=== PATIENT | female | born 1950 | race Caucasian/White ===

== ENCOUNTER 2018-02-25 14:20 | Emergency (ER) | payer OTHER, MEDICARE ==
[2018-02-25] MEDS ORDERED: LORAZEPAM 1 MG TABLET ONE (15:32)
[2018-02-25] MEDS ORDERED: NA CHLORIDE 0.9% 500 ML ONE (15:47)
[2018-02-25] MEDS ORDERED: CEFTRIAXONE/SWI 1gm 1 GM/10 ML SYR ONE (15:47)
--- NOTE | 2018-02-25 15:54 | RAD REPORT ---
EXAM DESCRIPTION: CT - Head Brain Wo Cont - 02/25/2018 3:44 pm CLINICAL HISTORY: Headache, TIA. COMPARISON: 11/06/2016 TECHNIQUE: All CT scans are performed using dose optimization technique as appropriate and may inclu de automated exposure control or mA/KV adjustment according to patient size. FINDINGS: No intracranial hemorrhage, hydrocephalus or extra-axial fluid collection.Small area of gl iosis in the left basal ganglia is likely related to old lacunar infarct.No areas of brain edema or e vidence of midline shift. The paranasal sinuses and mastoids are clear. The calvarium is intact. IMPRESSION: No acute intracranial abnormality.
[2018-02-25 16:01] LABS: Absolute Lymphocytes (CBC) 1.9 K/uL (0.7-4.9); Absolute Monocytes 0.5 K/uL (0.1-1.3); Absolute Neutrophil 3.4 K/uL (1.8-8.0); Basophils % 0.4 % (0-1.3); Eosinophils % 2.4 % (0-4.4); Hematocrit 37.7 % (36.0-45.0); Lymphocytes % 32.7 % (15.3-44.8); MCH 31.3 pg (27.0-35.0); MCV 89.8 fL (80-100); MPV 7.3 fL (7.6-11.3); Monocytes % 7.7 % (3.3-12.3); RBC Red Blood Cell Count 4.19 M/uL (3.86-4.86)
[2018-02-25 16:04] LABS: Protime INR 0.9
[2018-02-25 16:05] LABS: Bicarbonate 32 mEq/L (21-31); Glucose Level 111 mg/dL (65-120); Potassium 3.2 mEq/L (3.6-5.0); Sodium Level 127 mEq/L (135-145)
[2018-02-25 16:12] LABS: ALT/SGPT 13 IU/L (10-60); AST/SGOT 20 IU/L (10-42); Alkaline Phosphatase 67 IU/L (42-121); BUN Blood Urea Nitrogen 15 mg/dL (6-20); Bilirubin Direct 0.1 mg/dL (0-0.2); Bilirubin Total 0.5 mg/dL (0.3-1.2); Creatine Phosphokinase 56 IU/L (22-269)
[2018-02-25 16:15] LABS: CKMB Creatine Kinase MB 3.9 ng/ml (0.3-4.0)
[2018-02-25 16:18] LABS: Magnesium 1.2 mg/dL (1.8-2.5)
[2018-02-25] MEDS ORDERED: Magnesium Sulfate 2gm IVPB 2 G/50 ML BAG IV ONE (16:40)
--- NOTE | 2018-02-25 17:17 | RAD REPORT ---
EXAM DESCRIPTION: RAD - Chest Single View - 02/25/2018 4:48 pm CLINICAL HISTORY: Weakness, shortness of breath COMPARISON: November 2016 TECHNIQUE: AP portable chest image was obtained 1553 hours . FINDINGS: No peripheral mass, consolidation or significant failure finding. Lung markings are mildly prominent but not clearly different. Trachea is midline. Heart and vasculature are normal. No measur able pleural effusion and no pneumothorax. No gross bony abnormality seen. No acute aortic findings s uspected. IMPRESSION: No acute cardiopulmonary process. No suspicious interval change.
--- NOTE | 2018-02-25 17:31 | ER ---
Nurse's Notes [facility] Name: Evie Galan Age: 67 yrs Sex: Female : 1950 Arrival Date: 02/25/2018 Time: 14:25 Bed 20 Private MD: Isaias Goodman Diagnosis: Hypokalemia;Hypomagnesemia;Urinary tract infection, site not specified Presentation: 02/25 14:37 Presenting complaint: Patient states: " [place] and I stood up to ph go to the bathroom and I felt weak all over. I didn't go the hospital, I just went to bed and I felt much better when I woke up. On Wednesday my home health nurse came and she said I may have had a TIA and I should come get checked out." Pt reports general weakness and fatigue, denies headache or dizziness, A\\T\\O x 4, hx of CVA 1 year ago, denies recent illness, reports 1 episode of vomiting when weakness occurred on Sat. Transition of care: patient was not received from another setting of care. No acute neurological deficit is noted. Onset of symptoms was February 25, 2018. Risk Assessment: Do you want to hurt yourself or someone else? Patient reports no desire to harm self or others. Initial Sepsis Screen: Does the patient meet any 2 criteria? No. Patient's initial sepsis screen is negative. Does the patient have a suspected source of infection? No. Patient's initial sepsis screen is negative. Care prior to arrival: None. 14:37 Method Of Arrival: Ambulatory 14:37 Acuity: AFTAB 3 ph Stroke Activation: Symptom onset > 6 hours Physician: Stroke Attending; Name: ; Notified At: ; Arrived At: Physician: Chief Stroke Resident; Name: ; Notified At: ; Arrived At: Physician: Stroke Resident; Name: ; Notified At: ; Arrived At: Physician: ED Attending; Name: ; Notified At: ; Arrived At: Physician: ED Resident; Name: ; Notified At: ; Arrived At: Historical: - Allergies: 14:42 Adhesives; ph - Home Meds: 14:42 aspirin 325 mg Oral tab 1 tab once daily [Active]; amlodipine 10 mg tab 1 tab once ph daily [Active]; bupropion HCl 300 mg Oral Tb24 1 tab once daily [Active]; Crestor 20 mg Oral tab 1 tab once daily [Active]; fluvoxamine 100 mg Oral tab 1 tab TID [Active]; Lantus Sub-Q [Active]; lisinopril 20 mg Oral tab 1 tab once daily [Active]; metformin 1,000 mg Oral tab 1 tab 2 times per day [Active]; metoprolol succinate 50 mg Oral Tb24 1 tab once daily [Active]; oxcarbazepine 300 mg Oral tab 1 tab 3 TIMES A DAY [Active]; - PMHx: 14:42 Depression; Diabetes - IDDM; High Cholesterol; Hypertension; ph - Immunization history:: Adult Immunizations up to date. - Social history:: Smoking status: Patient/guardian denies using tobacco. - Ebola Screening: : No symptoms or risks identified at this time. Screenin:52 Abuse screen: Denies threats or abuse. Nutritional screening: No deficits noted. em Tuberculosis screening: No symptoms or risk factors identified. Fall Risk None identified. Assessment: 14:45 General: Appears in no apparent distress. comfortable, Behavior is calm, cooperative. em General: Reports fatigue for >3 days. Pain: Denies pain. Neuro: Level of Consciousness is awake, alert, obeys commands, Oriented to person, place, time, situation, Moves all extremities. Speech is normal, Facial symmetry appears normal, Pupils are PERRLA. Cardiovascular: Capillary refill < 3 seconds Patient's skin is warm and dry. Respiratory: Airway is patent Respiratory effort is even, unlabored, Respiratory pattern is regular, symmetrical, Breath sounds are clear bilaterally. GI: Abdomen is round non-distended. : No signs and/or symptoms were reported regarding the genitourinary system. EENT: No signs and/or symptoms were reported regarding the EENT system. Derm: Skin is intact, Skin is pink, warm \\T\\ dry. Musculoskeletal: Range of motion: intact in all extremities. 15:00 Reassessment: Patient appears in no apparent distress at this time. I agree with above iw assessment by Chandler Davey LVN. 15:50 Reassessment: Patient appears in no apparent distress at this time. Patient and/or em family updated on plan of care and expected duration. Pain level reassessed. Patient is alert, oriented x 3, equal unlabored respirations, skin warm/dry/pink. Patient states feeling better. 16:50 Reassessment: Patient appears in no apparent distress at this time. Patient and/or em family updated on plan of care and expected duration. Pain level reassessed. Patient is alert, oriented x 3, equal unlabored respirations, skin warm/dry/pink. 17:47 Reassessment: Patient appears in no apparent distress at this time. Patient and/or em family updated on plan of care and expected duration. Pain level reassessed. Patient is alert, oriented x 3, equal unlabored respirations, skin warm/dry/pink. awaiting completion of magnesium to discharge pt, family member at bedside. 18:40 Reassessment: Patient appears in no apparent distress at this time. Patient and/or em family updated on plan of care and expected duration. Pain level reassessed. Patient is alert, oriented x 3, equal unlabored respirations, skin warm/dry/pink. Patient states feeling better. Patient states symptoms have improved. Vital Signs: 14:40 BP 169 / 82; Pulse 53; Resp 18; Temp 98.5; Pulse Ox 96% on R/A; Weight 79.38 kg; Height ph 5 ft. 4 in. (162.56 cm); Pain 0/10; 15:13 BP 174 / 75 Supine; Pulse 61; em 15:13 BP 187 / 68 Sitting; Pulse 55; em 15:13 BP 181 / 74; Pulse 77; Resp 16; Pulse Ox 99% on R/A; Pain 0/10; em 16:17 BP 162 / 75; Pulse 54; Resp 15; Pulse Ox 97% on R/A; mh5 17:00 BP 168 / 56; Pulse 57; Resp 18; Pulse Ox 99% on R/A; Pain 0/10; em 18:00 BP 179 / 65; Pulse 59; Resp 18; Pulse Ox 98% on R/A; Pain 0/10; em 14:40 Body Mass Index 30.04 (79.38 kg, 162.56 cm) ph ED Course: 14:25 Patient arrived in ED. mr 14:25 Isaias Goodman DO is Private Physician. mr 14:40 Triage completed. ph 14:42 Arm band placed on. ph 14:50 Chandler Davey LVN is Primary Nurse. em 15:01 Preston Melvin PA is PHCP. cp 15:01 Preston Freitas MD is Attending Physician. cp 15:19 EKG done, by highway maintenance technician. reviewed by Preston XAVIER. sm3 15:30 No provider procedures requiring assistance completed. Initial lab(s) drawn, by me, em sent to lab. Inserted saline lock: 20 gauge in right forearm, using aseptic technique. Blood collected. 15:44 CT Head Brain wo Cont In Process Unspecified. EDMS 15:45 CT completed. Patient tolerated procedure well. Patient moved back from CT. mw3 15:45 Patient has correct armband on for positive identification. Placed in gown. Bed in low mh5 position. Call light in reach. Side rails up X 1. Adult w/ patient. Warm blanket given. monitor tech on. Pulse ox on. NIBP on. 15:45 Urine collected: clean catch specimen, cloudy. mh5 16:48 XRAY Chest (1 view) In Process Unspecified. EDMS 17:29 Isaias Goodman DO is Referral Physician. cp 18:51 IV discontinued, intact, bleeding controlled, No redness/swelling at site. Pressure em dressing applied. Administered Medications: 15:40 Drug: Ativan 1 mg Route: PO; em 16:45 Follow up: Response: No adverse reaction em 16:00 Drug: NS 0.9% 500 ml Route: IV; Rate: bolus; Site: right forearm; em 17:13 Follow up: IV Status: Completed infusion; IV Intake: 500ml em 16:13 CANCELLED (Physician Discretion): Rocephin - (cefTRIAXone) 1 grams IVPB once over 30 em mins; (mix in 50 mL NS) for UTI 16:13 CANCELLED (Physician Discretion): NS 0.9% 500 ml IV at bolus once em 16:14 Drug: Rocephin - (cefTRIAXone) 1 grams Route: IVPB; Infused Over: 30 mins; Site: right iw forearm; 17:13 Follow up: Response: No adverse reaction; IV Status: Completed infusion em 16:44 Drug: Magnesium Sulfate 2 grams Route: IVPB; Infused Over: 2 hrs; Site: right forearm; em 18:50 Follow up: IV Status: Completed infusion; IV Intake: 50ml em 17:30 Drug: NS 0.9% 500 ml Route: IV; Rate: bolus; Site: right forearm; em 18:50 Follow up: IV Status: Completed infusion; IV Intake: 500ml em 17:46 Drug: Potassium Chloride 40 mEq Route: PO; em 18:50 Follow up: Response: No adverse reaction em Point of Care Testing: Blood Glucose: 15:15 Blood Glucose: 106 mg/dL; em Ranges: Intake: 17:13 IV: 500ml; Total: 500ml. em 18:50 IV: 500ml; Total: 1000ml. em 18:50 IV: 50ml; Total: 1050ml. em Outcome: 17:30 Discharge ordered by MD. cp 19:01 Discharged to home ambulatory. em 19:01 Condition: good 19:01 Discharge instructions given to patient, Instructed on discharge instructions, follow up and referral plans. Demonstrated understanding of instructions, follow-up care, medications, Prescriptions given X 3. 19:02 Patient left the ED. em Signatures: Dispatcher [employer] Karin Carter mr Davey, Chandler, DIRECTOR PATIENT ACCOUNTING DIRECTOR PATIENT ACCOUNTING em Lindsay Amaya RN RN Eli Will RN RN ph Preston Melvin PA PA cp Martinez, Maria 5 Cayla Mccall 3 Edie Corado mw3 Corrections: (The following items were deleted from the chart) 14:40 14:37 Presenting complaint: Patient states: " [place] and I stood ph up to go to the bathroom and I felt weak all over. I didn't go the hospital, I just went to bed and I felt much better when I woke up. On Wednesday my home health nurse came and she said I may have had a TIA and I should come get checked out." Pt reports general weakness and fatigue, denies headache or dizziness, A\\T\\O x 4, hx of CVA 1 year ago ph
--- NOTE | 2018-02-25 17:32 | EDPHYS ---
Physician Documentation [facility] Name: Evie Galan Age: 67 yrs Sex: Female : 1950 Arrival Date: 02/25/2018 Time: 14:25 Bed 20 Private MD: Isaias Goodman ED Physician Preston Freitas HPI: 02/25 15:05 This 67 yrs old Female presents to ER via Ambulatory with complaints of cp Weakness. 15:05 The patient presents to the emergency department with weakness of the entire body, cp generalized weakness, that is mild. 15:05 Onset: The symptoms/episode began/occurred 4 day(s) ago. Associated signs and symptoms: cp Pertinent positives: weakness, fatigue, Pertinent negatives: altered mental status, chills, fever, headache, neck stiffness, paresthesias, syncope, near-syncope, focal weakness, change in vision. Severity of symptoms: in the emergency department the symptoms have improved mildly. Patient's baseline: Neuro: alert and fully oriented, Motor: right-sided weakness, Speech: normal, The patient has a previous history of CVA. Current symptoms: general weakness, fatigue. Patient reports she at a casino this past [place] and when she got up to go to restroom felt general weakness. Patient reports she went to her room for a nap and felt better after awakening. Symptoms have improved but continues to feel general weakness and fatigue. Historical: - Allergies: 14:42 Adhesives; ph - Home Meds: 14:42 aspirin 325 mg Oral tab 1 tab once daily [Active]; amlodipine 10 mg tab 1 tab once ph daily [Active]; bupropion HCl 300 mg Oral Tb24 1 tab once daily [Active]; Crestor 20 mg Oral tab 1 tab once daily [Active]; fluvoxamine 100 mg Oral tab 1 tab TID [Active]; Lantus Sub-Q [Active]; lisinopril 20 mg Oral tab 1 tab once daily [Active]; metformin 1,000 mg Oral tab 1 tab 2 times per day [Active]; metoprolol succinate 50 mg Oral Tb24 1 tab once daily [Active]; oxcarbazepine 300 mg Oral tab 1 tab 3 TIMES A DAY [Active]; - PMHx: 14:42 Depression; Diabetes - IDDM; High Cholesterol; Hypertension; ph - Immunization history:: Adult Immunizations up to date. - Social history:: Smoking status: Patient/guardian denies using tobacco. - Ebola Screening: : No symptoms or risks identified at this time. ROS: 15:10 Constitutional: Positive for fatigue, Negative for body aches, chills, fever, poor PO cp intake. 15:10 Eyes: Negative for injury, pain, redness, and discharge. cp 15:10 ENT: Negative for drainage from ear(s), ear pain, sore throat, difficulty swallowing, difficulty handling secretions. 15:10 Cardiovascular: Negative for chest pain, edema, palpitations. 15:10 Respiratory: Negative for cough, shortness of breath, wheezing. 15:10 Abdomen/GI: Negative for abdominal pain, diarrhea, constipation, anorexia, dysphagia, black/tarry stool, rectal bleeding, active vomiting. 15:10 Back: Negative for pain at rest, pain with movement. 15:10 : Negative for urinary symptoms, flank pain. 15:10 MS/extremity: Negative for injury or acute deformity, decreased range of motion, pain, paresthesias, tenderness. 15:10 Skin: Negative for cellulitis, rash. 15:10 Neuro: Positive for general weakness, Negative for altered mental status, dizziness, headache, syncope, near syncope, visual changes. 15:10 All other systems are negative. Exam: 15:17 ECG was reviewed by the Attending Physician. cp 15:18 Constitutional: The patient appears in no acute distress, alert, awake, cp non-diaphoretic, non-toxic, well developed, well nourished. 15:18 Head/Face: Normocephalic, atraumatic. Eyes: Pupils equal round and reactive to light, cp extra-ocular motions intact. Lids and lashes normal. Conjunctiva and sclera are non-icteric and not injected. Cornea within normal limits. Periorbital areas with no swelling, redness, or edema. ENT: Nares patent. No nasal discharge, no septal abnormalities noted. Tympanic membranes are normal and external auditory canals are clear. Oropharynx with no redness, swelling, or masses, exudates, or evidence of obstruction, uvula midline. Mucous membranes moist. Neck: Trachea midline, no thyromegaly or masses palpated, and no cervical lymphadenopathy. Supple, full range of motion without nuchal rigidity, or vertebral point tenderness. No Meningismus. Chest/axilla: Normal chest wall appearance and motion. Nontender with no deformity. No lesions are appreciated. 15:18 Cardiovascular: Rate: normal, Rhythm: regular, Pulses: Pulses are 2+ in right radial artery and left radial artery. Edema: is not appreciated, JVD: is not appreciated. 15:18 Respiratory: the patient does not display signs of respiratory distress, Respirations: normal, no use of accessory muscles, no retractions, no splinting, no tachypnea, labored breathing, is not present, Breath sounds: are clear throughout, no decreased breath sounds, no stridor, no wheezing. 15:18 Abdomen/GI: Inspection: abdomen appears normal, Bowel sounds: active, all quadrants, Palpation: abdomen is soft and non-tender, in all quadrants, rebound tenderness, is not appreciated, voluntary guarding, is not appreciated, involuntary guarding, is not appreciated. 15:18 Back: pain, is absent, ROM is normal. 15:18 Skin: cellulitis, is not appreciated, no rash present. 15:18 Neuro: Cerebellar function: Romberg testing is negative, normal finger to nose testing, Motor: moves all fours, general weakness w/o focal deficits, Sensation: no obvious gross deficits. Vital Signs: 14:40 BP 169 / 82; Pulse 53; Resp 18; Temp 98.5; Pulse Ox 96% on R/A; Weight 79.38 kg; Height ph 5 ft. 4 in. (162.56 cm); Pain 0/10; 15:13 BP 174 / 75 Supine; Pulse 61; em 15:13 BP 187 / 68 Sitting; Pulse 55; em 15:13 BP 181 / 74; Pulse 77; Resp 16; Pulse Ox 99% on R/A; Pain 0/10; em 16:17 BP 162 / 75; Pulse 54; Resp 15; Pulse Ox 97% on R/A; mh5 17:00 BP 168 / 56; Pulse 57; Resp 18; Pulse Ox 99% on R/A; Pain 0/10; em 18:00 BP 179 / 65; Pulse 59; Resp 18; Pulse Ox 98% on R/A; Pain 0/10; em 14:40 Body Mass Index 30.04 (79.38 kg, 162.56 cm) ph MDM: 15:02 Patient medically screened. [facility] 17:26 Data reviewed: vital signs, nurses notes, lab test result(s), EKG, radiologic studies, cp CT scan, plain films. 17:27 ED course: VSS. Discussed results of labs, EKG and radiology studies. Patient reports cp she is feeling better and would like to be discharged to home for continued monitoring verses continued observation in ED. 17:30 Counseling: I had a detailed discussion with the patient and/or guardian regarding: the cp historical points, exam findings, and any diagnostic results supporting the discharge/admit diagnosis, lab results, radiology results, the need for outpatient follow up, a family practitioner, to return to the emergency department if symptoms worsen or persist or if there are any questions or concerns that arise at home. 17:30 Response to treatment: the patient's symptoms have markedly improved after treatment. cp 02/25 15:02 Order name: Basic Metabolic Panel; Complete Time: 16:59 cp 02/25 16:59 Interpretation: Normal except: NA 127; K 3.2; CL 88; CO2 32. cp 02/25 15:02 Order name: BNP; Complete Time: 16:59 cp 02/25 18:30 Interpretation: Abnormal: BNP 335. cp 02/25 15:02 Order name: CBC with Diff; Complete Time: 16:11 cp 02/25 16:11 Interpretation: Normal except: MCV 89.8; MPV 7.3. cp 02/25 15:02 Order name: Ckmb; Complete Time: 16:59 cp 02/25 15:02 Order name: CPK; Complete Time: 16:59 cp 02/25 15:02 Order name: LFT's; Complete Time: 16:59 cp 02/25 15:02 Order name: Magnesium; Complete Time: 16:59 cp 02/25 17:00 Interpretation: Abnormal: MG 1.2. cp 02/25 15:02 Order name: PT-INR; Complete Time: 16:11 cp 02/25 15:02 Order name: Ptt, Activated; Complete Time: 16:11 cp 02/25 15:02 Order name: Troponin (emerg Dept Use Only); Complete Time: 16:59 cp 02/25 15:02 Order name: XRAY Chest (1 view); Complete Time: 17:18 cp 02/25 15:10 Order name: CT Head Brain wo Cont; Complete Time: 15:58 cp 02/25 15:58 Interpretation: Report reviewed. cp 02/25 16:39 Order name: Urine Dipstick--Ancillary (enter results); Complete Time: 18:29 ag 02/25 18:29 Interpretation: Normal except: UPH 8.5; UPROT 1+; U NIT POSITIVE; UESTR 1+. cp 02/25 15:01 Order name: Orthostatics; Complete Time: 15:43 cp 02/25 15:02 Order name: EKG; Complete Time: 15:03 cp 02/25 15:02 Order name: Cardiac monitoring; Complete Time: 15:43 cp 02/25 15:02 Order name: EKG - Nurse/Tech; Complete Time: 15:44 cp 02/25 15:02 Order name: IV Saline Lock; Complete Time: 15:44 cp 02/25 15:02 Order name: Labs collected and sent; Complete Time: 15:44 cp 02/25 15:02 Order name: O2 Per Protocol; Complete Time: 15:44 cp 02/25 15:02 Order name: O2 Sat Monitoring; Complete Time: 15:44 cp 02/25 15:02 Order name: Urine Dipstick-Ancillary (obtain specimen); Complete Time: 15:44 cp EC:17 Rate is 61 beats/min. Rhythm is regular. IA interval is prolonged at 222 msec. QRS cp interval is prolonged. QT interval is normal. No ST changes noted. Interpreted by me. Reviewed by me. Administered Medications: 15:40 Drug: Ativan 1 mg Route: PO; em 16:45 Follow up: Response: No adverse reaction em 16:00 Drug: NS 0.9% 500 ml Route: IV; Rate: bolus; Site: right forearm; em 17:13 Follow up: IV Status: Completed infusion; IV Intake: 500ml em 16:13 CANCELLED (Physician Discretion): Rocephin - (cefTRIAXone) 1 grams IVPB once over 30 em mins; (mix in 50 mL NS) for UTI 16:13 CANCELLED (Physician Discretion): NS 0.9% 500 ml IV at bolus once em 16:14 Drug: Rocephin - (cefTRIAXone) 1 grams Route: IVPB; Infused Over: 30 mins; Site: right iw forearm; 17:13 Follow up: Response: No adverse reaction; IV Status: Completed infusion em 16:44 Drug: Magnesium Sulfate 2 grams Route: IVPB; Infused Over: 2 hrs; Site: right forearm; em 18:50 Follow up: IV Status: Completed infusion; IV Intake: 50ml em 17:30 Drug: NS 0.9% 500 ml Route: IV; Rate: bolus; Site: right forearm; em 18:50 Follow up: IV Status: Completed infusion; IV Intake: 500ml em 17:46 Drug: Potassium Chloride 40 mEq Route: PO; em 18:50 Follow up: Response: No adverse reaction em Point of Care Testing: Blood Glucose: 15:15 Blood Glucose: 106 mg/dL; em Ranges: Critical Glucose Levels:Adult <50 mg/dl or >400 mg/dl <40 mg/dl or >180 mg/dl Disposition: 02/25/18 17:30 Discharged to Home. Impression: Hypokalemia, Hypomagnesemia, Urinary tract infection, site not specified. - Condition is Stable. - Discharge Instructions: Potassium Content of Foods, Hypomagnesemia, Urinary Tract Infection, Hypokalemia. - Prescriptions for magnesium - take 400 milligram by ORAL route once daily for 3 days; 3 tablet. Augmentin 875- 125 mg Oral Tablet - take 1 tablet by ORAL route every 12 hours for 10 days; 20 tablet. Potassium Chloride 10 mEq Oral Capsule, Sustained Release - take 1 tablet by ORAL route every 12 hours for 3 days; 6 tablet. - Medication Reconciliation Form, Thank You Letter, Antibiotic Education, Prescription Opioid Use form. - Follow up: Isaias Goodman DO; When: 2 - 3 days; Reason: Recheck today's complaints. - Problem is new. - Symptoms have improved. Addendum: 03/01/2018 09:03 Co-signature as Attending Physician, Preston Freitas MD I agree with the assessment and c hernandez plan of care. Signatures: Dispatcher [employer] Preston Mchugh MD MD cha Munoz, Edgar, HANDLE FINISHER HANDLE FINISHER em Lindsay Amaya, WALLY RN iw Eli Will RN RN ph Preston Melvin PA PA cp Corrections: (The following items were deleted from the chart) 02/25 16:13 16:12 Rocephin - (cefTRIAXone) 1 grams IVPB once over 30 mins; (mix in 50 mL NS) for em UTI ordered. cp 16:13 16:12 NS 0.9% 500 ml IV at bolus once ordered. cp em 19:02 17:30 02/25/2018 17:30 Discharged to Home. Impression: Hypokalemia; Hypomagnesemia; em Urinary tract infection, site not specified. Condition is Stable. Forms are Medication Reconciliation Form, Thank You Letter, Antibiotic Education, Prescription Opioid Use. Follow up: Isaias Goodman; When: 2 - 3 days; Reason: Recheck today's complaints. Problem is new. Symptoms have improved. cp
--- NOTE | 2018-02-25 17:37 | EKG ---
Test Date: 2018-02-25 Test Time: 15:12:27 Snow Removal/Plowing: BANDAR MEASUREMENT RESULTS: Intervals: Rate: 61 VT: 222 QRSD: 106 QT: 432 QTc: 434 [place]: P: 63 VT: 222 QRS: 37 T: 61 INTERPRETIVE STATEMENTS: Sinus rhythm with 1st degree AV block Otherwise normal ECG Compared to ECG 11/06/2016 22:07:14 No significant changes Electronically Signed On 02-25-18 17:36:40 CDT by Tobi Chiu
[2018-02-25] MEDS ORDERED: POTASSIUM CL SA 10 MEQ TAB PO ONE (17:42)
[2018-02-25 17:57] LABS: Urine Blood NEGATIVE (NEG); Urine Glucose NEGATIVE (NEG); Urine Protein 1+ (NEG); Urine Specific Gravity 1.015 (1.005-1.030); Urine pH 8.5 (5.0-7.0)
== END 2018-02-25 19:02 | disposition home or self-care (01) ==
LOC: ER 14:20
DX: N39.0 Urinary tract infection, site not specified (principal); E87.6 Hypokalemia; E83.42 Hypomagnesemia; I10 Essential (primary) hypertension; E11.9 Type 2 diabetes mellitus without complications; F32.9 Major depressive disorder, single episode, unspecified; Z79.4 Long term (current) use of insulin; Z79.82 Long term (current) use of aspirin; Z91.048 Other nonmedicinal substance allergy status
CPT/HCPCS: 36415; 70450; 71045; 80048; 80076; 81003; 82550; 82553; 82962; 83735; 83880; 84484; 85025; 85610; 85730; 93005; 96365; 96366; 99285; J0696; J3475; 96361; 96368

== ENCOUNTER 2019-01-27 14:26 | Inpatient (IN) | payer OTHER, MEDICARE ==
--- NOTE | 2019-01-27 15:11 | RAD REPORT ---
EXAM DESCRIPTION: CT - CTHCSPWOC - 01/27/2019 3:01 pm CLINICAL HISTORY: Trauma, head and neck injury, weakness COMPARISON: None. TECHNIQUE: Axial 5 mm thick images of the head were obtained. Axial 2 mm thick images of the cervic al spine were obtained with sagittal and coronal reconstruction images generated and reviewed. All CT scans are performed using dose optimization technique as appropriate and may include automated exposure control or mA/KV adjustment according to patient size. FINDINGS: No intracranial hemorrhage, mass, edema or acute intracranial finding. No suspicion for acute infarct ion. No extra-axial fluid collections. Mastoid air cells and paranasal sinuses are clear. No globe or orbit abnormality seen. Atrophy and chronic ischemic changes are present. Ventricles are in proporti on to volume loss. Cervical body height and alignment are normal. No significant disc space narrowing. Facet joint degen erative changes are present more prominent on the left. No fracture or acute bony abnormality. Centra l canal detail is inherently limited. No paraspinal mass or hematoma. IMPRESSION: Atrophy and chronic ischemic changes are present Negative CT cervical spine examination for acute or significant finding. Cervical spine degenerative changes are present as detailed.
--- NOTE | 2019-01-27 15:18 | RAD REPORT ---
EXAM DESCRIPTION: RAD - Chest Single View - 01/27/2019 3:12 pm CLINICAL HISTORY: Cough, weakness COMPARISON: February 2018 TECHNIQUE: AP portable chest image was obtained 1509 hours . FINDINGS: No focal lung parenchymal process seen. Lung markings are similar to comparison. Heart siz e is increased fractionally from the comparison. No acute vascular engorgement. Failure or volume ove rload are not suspected. No measurable pleural effusion and no pneumothorax. No acute bony abnormalit y seen. No acute aortic findings suspected. IMPRESSION: No acute lung parenchymal process seen. Lung markings are not substantially different. Heart size is increased slightly from comparison but no acute failure finding seen.
[2019-01-27] MEDS ORDERED: NA CHLORIDE 0.9% 1,000 ML ONE (15:26)
[2019-01-27 15:32] LABS: Absolute Lymphocytes (CBC) 1.4 K/uL (0.7-4.9); Absolute Monocytes 0.6 K/uL (0.1-1.3); Absolute Neutrophil 5.3 K/uL (1.8-8.0); Basophils % 0.4 % (0-1.3); Eosinophils % 0.5 % (0-4.4); Hematocrit 39.8 % (36.0-45.0); Lymphocytes % 18.8 % (15.3-44.8); MPV 7.5 fL (7.6-11.3); Monocytes % 7.6 % (3.3-12.3); RBC Red Blood Cell Count 4.51 M/uL (3.86-4.86)
[2019-01-27 15:59] LABS: Bilirubin Total 0.4 mg/dL (0.2-1.0); Potassium 3.4 mmol/L (3.5-5.1); Protein, Total 7.2 g/dL (6.4-8.2); Thyroid Stimulating Hormone 1.15 uIU/mL (0.360-3.740); Troponin I 0.03 ng/mL (0.0-0.045)
--- NOTE | 2019-01-27 16:20 | ER ---
Nurse's Notes [facility] Name: Evie Galan Age: 68 yrs Sex: Female : 1950 Arrival Date: 01/27/2019 Time: 14:28 Bed 13 Private MD: Isaias Goodman Diagnosis: Hypo-osmolality and hyponatremia Presentation: 01/27 14:33 Presenting complaint: Patient states: generalized weakness for about 3 weeks and has sv been using a cane to help her get around. Spouse states that she has been more forgetful than usual. Transition of care: patient was not received from another setting of care. Onset of symptoms was January 2019. Care prior to arrival: None. 14:33 Method Of Arrival: Wheelchair sv 14:33 Acuity: AFTAB 3 sv 18:41 Risk Assessment: Do you want to hurt yourself or someone else? Patient reports no aj desire to harm self or others. Initial Sepsis Screen: Does the patient meet any 2 criteria? No. Patient's initial sepsis screen is negative. Does the patient have a suspected source of infection? No. Patient's initial sepsis screen is negative. Triage Assessment: 18:42 General: Appears. aj Historical: - Allergies: 14:34 Adhesives; sv - PMHx: 14:34 Depression; Diabetes - IDDM; High Cholesterol; Hypertension; sv - Immunization history:: Adult Immunizations up to date. - Social history:: Patient/guardian denies using alcohol, street drugs, The patient lives with family, Smoking status: Patient/guardian denies using tobacco. - Family history:: not pertinent. - Ebola Screening: : Patient negative for fever greater than or equal to 101.5 degrees Fahrenheit, and additional compatible Ebola Virus Disease symptoms Patient denies exposure to infectious person Patient denies travel to an Ebola-affected area in the 21 days before illness onset No symptoms or risks identified at this time. Screenin:50 Abuse screen: Denies threats or abuse. Denies injuries from another. Nutritional aj screening: No deficits noted. Tuberculosis screening: No symptoms or risk factors identified. Fall Risk None identified. Assessment: 15:00 General: Appears in no apparent distress. comfortable, Behavior is calm, cooperative, aj appropriate for age. Pain: Denies pain. Neuro: Level of Consciousness is awake, alert, obeys commands, Oriented to person, place, time, situation, Appropriate for age. Neuro: [employer] are equal bilaterally Moves all extremities. Speech is normal, Facial symmetry appears normal, Pupils are PERRLA, Reports Generalized fuzziness.. Respiratory: Airway is patent Respiratory effort is even, unlabored, Respiratory pattern is regular, symmetrical. Derm: Skin is intact, is healthy with good turgor, Skin is pink, warm \T\ dry. normal. 17:51 Reassessment: Patient appears in no apparent distress at this time. Patient is alert, aj oriented x 3, equal unlabored respirations, skin warm/dry/pink. Patient sitting up in bed eating meal tray. Reports feeling better Patient states feeling better. Patient states symptoms have improved. Vital Signs: 14:34 BP 151 / 80; Pulse 61; Resp 16; Temp 98.5; Pulse Ox 95% ; Weight 81.65 kg; Height 5 ft. sv 4 in. (162.56 cm); Pain 0/10; 15:30 BP 160 / 81; Pulse 64; Resp 19; Pulse Ox 100% on R/A; aj 16:30 BP 157 / 79; Pulse 63; Resp 18; Pulse Ox 98% on R/A; aj 17:30 BP 170 / 86; Pulse 71; Resp 19; Pulse Ox 99% on R/A; aj 18:42 BP 176 / 84; Pulse 69; Resp 19; Pulse Ox 99% on R/A; aj 14:34 Body Mass Index 30.90 (81.65 kg, 162.56 cm) sv ED Course: 14:28 Patient arrived in ED. rg4 14:28 Isaias Goodman DO is Private Physician. rg4 14:33 Triage completed. sv 14:34 Arm band placed on. sv 14:46 Lacie Alvarez, RN is Primary Nurse. aj 14:48 Yvrose Bella MD is Attending Physician. ma2 15:02 Head C Spine Mpr Wo Con In Process Unspecified. EDMS 15:12 X-ray completed. Portable x-ray completed in exam room. Patient tolerated procedure mh1 well. 15:12 CT completed. Patient tolerated procedure well. Patient moved back from CT. mh1 15:13 Chest Single View XRAY In Process Unspecified. EDMS 15:15 Initial lab(s) drawn, by me, sent to lab. Inserted saline lock: 20 gauge in right dh3 forearm, using aseptic technique. Blood collected. 15:37 EKG done, reviewed by Yvrose Bella MD. [facility] 16:19 Sherrie Goodman MD is Hospitalizing Provider. [facility] 16:30 Urine collected: hat, eric color. 3 18:40 No provider procedures requiring assistance completed. Patient admitted, IV remains in aj place. intact. Administered Medications: 15:16 Drug: NS 0.9% 1000 ml Route: IV; Rate: 1 bolus; Site: right forearm; aj 18:13 Follow up: Response: No adverse reaction; IV Status: Completed infusion; IV Intake: aj 1000ml 17:46 Drug: Rocephin 1 grams Route: IV; Rate: calculated rate; Site: right wrist; aj 18:13 Follow up: Response: No adverse reaction; IV Status: Completed infusion; IV Intake: 10mlaj Intake: 18:13 IV: 10ml; Total: 10ml. aj 18:13 IV: 1000ml; Total: 1010ml. Outcome: 16:20 Decision to Hospitalize by Provider. nc2 18:41 Admitted to Med/surg 18:41 Condition: good 18:41 Instructed on the need for admit. 18:47 Patient left the ED. aj Signatures: Dispatcher [employer] EDMS Ladan Murray RN RN sv Myers, Amanda, RN RN aj Harvey, Martha 1 Latrice Castillo Tara Clarke [facility] Yvrose Bella MD MD [facility] Cayla Mccall [facility]
--- NOTE | 2019-01-27 16:20 | EDPHYS ---
Physician Documentation [facility] Name: Evie Galan Age: 68 yrs Sex: Female : 1950 Arrival Date: 01/27/2019 Time: 14:28 Bed 13 Private MD: Isaias Goodman Physician Yvrose Bella HPI: 01/27 15:06 This 68 yrs old Female presents to ER via Wheelchair with complaints of ma2 Weakness. 15:06 The patient presents to the emergency department with weakness of the entire body, ma2 generalized weakness. Onset: The symptoms/episode began/occurred gradually, 10 day(s) ago. Associated signs and symptoms: Pertinent positives: weakness, Pertinent negatives: altered mental status, chills, dizziness, fever, headache, nausea, neck stiffness, paresthesias, seizure, syncope, near-syncope, blurred vision, double vision, visual field changes, loss of vision. Severity of symptoms: At their worst the symptoms were moderate in the emergency department the symptoms are unchanged. Current symptoms: Currently, the patient is not experiencing any symptoms. The patient has not experienced similar symptoms in the past. Historical: - Allergies: 14:34 Adhesives; sv - PMHx: 14:34 Depression; Diabetes - IDDM; High Cholesterol; Hypertension; sv - Immunization history:: Adult Immunizations up to date. - Social history:: Patient/guardian denies using alcohol, street drugs, The patient lives with family, Smoking status: Patient/guardian denies using tobacco. - Family history:: not pertinent. - Ebola Screening: : Patient negative for fever greater than or equal to 101.5 degrees Fahrenheit, and additional compatible Ebola Virus Disease symptoms Patient denies exposure to infectious person Patient denies travel to an Ebola-affected area in the 21 days before illness onset No symptoms or risks identified at this time. ROS: 15:06 Constitutional: Negative for fever, chills, and weight loss. ma2 15:06 Neuro: Positive for weakness, Negative for gait disturbance, loss of consciousness, seizure activity, speech changes, tinnitus, visual changes. 15:06 All other systems are negative. Exam: 15:06 Constitutional: This is a well developed, well nourished patient who is awake, alert, ma2 and in no acute distress. Head/Face: Normocephalic, atraumatic. Eyes: Pupils equal round and reactive to light, extra-ocular motions intact. Lids and lashes normal. Conjunctiva and sclera are non-icteric and not injected. Cornea within normal limits. Periorbital areas with no swelling, redness, or edema. ENT: Nares patent. No nasal discharge, no septal abnormalities noted. Tympanic membranes are normal and external auditory canals are clear. Oropharynx with no redness, swelling, or masses, exudates, or evidence of obstruction, uvula midline. Mucous membranes moist. Chest/axilla: Normal chest wall appearance and motion. Nontender with no deformity. No lesions are appreciated. Cardiovascular: Regular rate and rhythm with a normal S1 and S2. No gallops, murmurs, or rubs. Normal PMI, no JVD. No pulse deficits. Respiratory: Lungs have equal breath sounds bilaterally, clear to auscultation and percussion. No rales, rhonchi or wheezes noted. No increased work of breathing, no retractions or nasal flaring. Abdomen/GI: Soft, non-tender, with normal bowel sounds. No distension or tympany. No guarding or rebound. No evidence of tenderness throughout. Back: No spinal tenderness. No costovertebral tenderness. Full range of motion. MS/ Extremity: Pulses equal, no cyanosis. Neurovascular intact. Full, normal range of motion. Neuro: Awake and alert, GCS 15, oriented to person, place, time, and situation. Cranial nerves II-XII grossly intact. Motor strength 5/5 in all extremities. Sensory grossly intact. Cerebellar exam normal. Normal gait. Vital Signs: 14:34 BP 151 / 80; Pulse 61; Resp 16; Temp 98.5; Pulse Ox 95% ; Weight 81.65 kg; Height 5 ft. sv 4 in. (162.56 cm); Pain 0/10; 15:30 BP 160 / 81; Pulse 64; Resp 19; Pulse Ox 100% on R/A; aj 16:30 BP 157 / 79; Pulse 63; Resp 18; Pulse Ox 98% on R/A; aj 17:30 BP 170 / 86; Pulse 71; Resp 19; Pulse Ox 99% on R/A; aj 18:42 BP 176 / 84; Pulse 69; Resp 19; Pulse Ox 99% on R/A; aj 14:34 Body Mass Index 30.90 (81.65 kg, 162.56 cm) sv MDM: 14:48 Patient medically screened. [facility] 16:18 Data reviewed: vital signs, nurses notes, radiologic studies. Counseling: I had a ma2 detailed discussion with the patient and/or guardian regarding: the historical points, exam findings, and any diagnostic results supporting the discharge/admit diagnosis, the presence of at least one elevated blood pressure reading (>120/80) during this emergency department visit, the need for further work-up and treatment in the hospital. Response to treatment: the patient's symptoms have markedly improved after treatment. ED course: patient improved, has severe hyponatremia discussed with dr. owusu, advised me to admit to floor. 01/27 14:49 Order name: CBC with Diff; Complete Time: 15:59 [facility] 01/27 14:49 Order name: CMP; Complete Time: 16:12 [facility] 01/27 14:49 Order name: Troponin I; Complete Time: 16:12 [facility] 01/27 14:50 Order name: TSH; Complete Time: 16:12 [facility] 01/27 14:50 Order name: T4 Free; Complete Time: 16:12 [facility] 01/27 16:32 Order name: Urine Dipstick--Ancillary (enter results); Complete Time: 17:22 01/27 14:49 Order name: Chest Single View XRAY; Complete Time: 15:32 [facility] 01/27 14:54 Order name: Head C Spine Mpr Wo Con; Complete Time: 15:32 [facility] 01/27 17:42 Order name: Urine Microscopic Only 01/27 18:16 Order name: Urine Microscopic Only [facility] 01/27 14:49 Order name: Urine Dipstick-Ancillary (obtain specimen); Complete Time: 16:32 [facility] 01/27 14:49 Order name: EKG - Nurse/Tech; Complete Time: 15:51 [facility] 01/27 16:45 Order name: Heart Healthy [facility] Administered Medications: 15:16 Drug: NS 0.9% 1000 ml Route: IV; Rate: 1 bolus; Site: right forearm; aj 18:13 Follow up: Response: No adverse reaction; IV Status: Completed infusion; IV Intake: aj 1000ml 17:46 Drug: Rocephin 1 grams Route: IV; Rate: calculated rate; Site: right wrist; aj 18:13 Follow up: Response: No adverse reaction; IV Status: Completed infusion; IV Intake: 10mlaj Disposition: 01/27/19 16:20 Hospitalization ordered by Sherrie Goodman for Inpatient Admission. Preliminary diagnosis is Hypo-osmolality and hyponatremia. - Bed requested for Telemetry/MedSurg (Inpatient). - Status is Inpatient Admission. aj - Condition is Stable. - Problem is new. - Symptoms are unchanged. UTI on Admission? No Signatures: Dispatcher [employer] EDMS Ladan Murray, RN RN Gracy Ibarra, RN RN Lacie Valladares RN Yvrose Munoz MD MD ma2 Corrections: (The following items were deleted from the chart) 14:52 14:50 Head Brain Wo Cont+CT.RAD.BRZ ordered. EDMS EDMS 14:53 14:50 C Spine Wo Con+CT.RAD.BRZ ordered. EDMS EDMS 14:54 14:52 CT HEAD,C-SPINT W/O ordered. EDMS EDMS 17:50 16:20 Hospitalization Ordered by Sherrie Goodman MD for Inpatient Admission. Preliminary diagnosis is Hypo-osmolality and hyponatremia. Bed requested for Telemetry/MedSurg (Inpatient). Status is Inpatient Admission. Condition is Stable. Problem is new. Symptoms are unchanged. UTI on Admission? No. ma2 18:47 17:50 01/27/2019 16:20 Hospitalization Ordered by Sherrie Goodman MD for Inpatient Admission. Preliminary diagnosis is Hypo-osmolality and hyponatremia. Bed requested for Telemetry/MedSurg (Inpatient). Status is Inpatient Admission. Condition is Stable. Problem is new. Symptoms are unchanged. UTI on Admission? No. dw
[2019-01-27] MEDS ORDERED: ONDANSETRON 4 MG/2 ML VIAL IV PRN (16:43)
--- NOTE | 2019-01-27 16:55 | P.HP ---
Certification for Inpatient Patient admitted to: Inpatient With expected LOS: >2 Midnights Patient will require the following post-hospital care: None Practitioner: I am a practitioner with admitting privileges, knowledge of patient current condition, hospital course, and medical plan of care. Services: Services provided to patient in accordance with Admission requirements found in Title 42 Section 412.3 of the Code of Federal Regulations Patient History Date of Service: 01/27/19 Primary Care Provider: Dr Goodman Reason for admission: Generalized Weakness History of Present Illness: 68 y/o F with pmhx of DM, Previous CVA, HTN who presented to the ED after being seen in the PCP office for Generalized weakness that has been getting progressively worse over the last couple of weeks. Pt also had a fall this morning due to weakness in her front loan. Did not hit her head. Pt states she had similar symptoms in the past and was seen in the ER and was found to have hyponatremia and UTI and was DC home. She did well overall until now. She denies having any other associated symptoms such as seizures, dizziness, muscle cramps, N/V or abd pain, SOB or CP. Also denies having fever or chills at this time. In the ER pt was seen and evaluated. lab work and Imaging was done consistent with Hyponatremia and Hypokalemia. Pt was thus referred for admission for further care. Allergies Adhesives Allergy (Uncoded 11/06/16 23:00) Unknown Home medications list reviewed: Yes - Past Medical/Surgical History Has patient received pneumonia vaccine in the past: No Diabetic: Yes -: HTN -: DM -: CVA Past Surgical History: Reviewed- Non-Contributory - Family History Family History: Reviewed- Non-Contributory - Social History Smoking Status: Unknown if ever smoked Counseled patient to stop smoking for: more than 10 minutes Smoking therapy provided: Yes Patient receptive to therapy: Yes Alcohol use: No CD- Drugs: No Caffeine use: No Place of Residence: Home Review of Systems 10-point ROS is otherwise unremarkable Physical Examination - Physical Exam General: Alert, Oriented x3, Cachectic, Other (Generalized weakness) HEENT: PERRLA Neck: Supple, 2+ carotid pulse no bruit Respiratory: Clear to auscultation bilaterally, Normal air movement Cardiovascular: Regular rate/rhythm, Normal S1 S2 Gastrointestinal: Normal bowel sounds, No tenderness Musculoskeletal: No tenderness Integumentary: No rashes Neurological: Normal speech, Normal tone, Sensation intact, Normal affect, Abnormal strength Lymphatics: No axilla or inguinal lymphadenopathy - Studies Laboratory Data (last 24 hrs) 01/27/19 15:15: Sodium 126 L, Potassium 3.4 L, BUN 17, Creatinine 1.01, Glucose 115 H, Total Bilirubin 0.4, AST 11 L, ALT 14, Alkaline Phosphatase 102, Troponin I 0.03 01/27/19 15:15: WBC 7.3, Hgb 13.9, Hct 39.8, Plt Count 318 Assessment and Plan - Problems (Diagnosis) (1) Fall Current Visit: Yes Status: Acute Plan: S/P Fall at the house -Trauma scan negative for acute abnormality -PT.OT consulted. Qualifiers: Encounter type: initial encounter Qualified Code(s): W19.XXXA - Unspecified fall, initial encounter (2) Hyponatremia Current Visit: Yes Status: Acute Plan: Symptomatic Hyponatremia with NA level of 126 in the ER. Most Likely dehydration vs Medication SE -Pt with Chronic H.o hyponatremia with Generalized weakness however now worse then before -NS @100ml/hr at this time. Caution to not over correct to rapidly. -Will monitor NA level closely and Neurological changes as well. (3) HTN (hypertension) Current Visit: Yes Status: Chronic Plan: BP stable at this time -Will restart home medication expect ones causing Hyponatremia Qualifiers: Hypertension type: essential hypertension Qualified Code(s): I10 - Essential (primary) hypertension (4) Diabetes Current Visit: Yes Status: Chronic Plan: BS stable for now -ISS and Accu checks Qualifiers: Diabetes mellitus type: type 2 Diabetes mellitus mcfp insulin use: without tank terminal gauger use Diabetes mellitus complication status: without complication Qualified Code(s): E11.9 - Type 2 diabetes mellitus without complications - Plan Admit to Med surg for further care of Hyponatremia. Will continue with IV NS fluids and monitor for neurological Changes. Discharge Plan: Home Plan to discharge in: 48 Hours - Advance Directives Does patient have a Living Will: No Does patient have a Durable POA for Healthcare: No - Code Status/Comfort Care Code Status Assessed: Yes Critical Care: No
[2019-01-27] MEDS ORDERED: GLUCAGON 1 MG/VIAL IM PRN (17:10)
[2019-01-27] MEDS ORDERED: D50W 25 GM/50 ML SYRINGE IV PRN (17:10)
[2019-01-27 17:21] LABS: Urine Blood NEGATIVE (NEG); Urine Glucose NEGATIVE (NEG); Urine Protein 2+ (NEG)
[2019-01-27] MEDS ORDERED: CEFTRIAXONE/SWI 1gm 1 GM/10 ML SYR ONE (17:55)
[2019-01-27 18:15] LABS: Urine Amorphous Sediment 2+ /HPF (NONE SEEN); Urine Bacteria 20-50 /HPF (<20); Urine Culture Reflex Order REFLEXED
[2019-01-27] MEDS ORDERED: POTASSIUM CL SA 10 MEQ TAB PO ONE (19:30)
[2019-01-27] MEDS: NA CHLORIDE 0.9% 1,000 ML IV SCH (20:00)
[2019-01-27] MEDS: INSULIN -REGULAR HUMAN 50 UNIT/0.5 ML ML SQ SCH (20:19)
[2019-01-27] MEDS ORDERED: NACHLORIDE 0.45% 0 ML IV ONE (22:58)
[2019-01-28] MEDS: NA CHLORIDE 0.9% 1,000 ML IV SCH ×4 (05:11→23:00)
[2019-01-28 06:11] LABS: Absolute Lymphocytes (CBC) 1.9 K/uL (0.7-4.9); Absolute Monocytes 0.6 K/uL (0.1-1.3); Absolute Neutrophil 4.4 K/uL (1.8-8.0); Basophils % 0.4 % (0-1.3); Hematocrit 39.2 % (36.0-45.0); Lymphocytes % 27.3 % (15.3-44.8); MPV 7.4 fL (7.6-11.3); Monocytes % 8.1 % (3.3-12.3); RBC Red Blood Cell Count 4.48 M/uL (3.86-4.86)
[2019-01-28 06:26] LABS: Albumin 3.9 g/dL (3.4-5.0); Bilirubin Total 0.4 mg/dL (0.2-1.0); Magnesium 1.6 mg/dL (1.8-2.4); Phosphorus 3.3 mg/dL (2.5-4.9); Potassium 3.5 mmol/L (3.5-5.1); Protein, Total 7.1 g/dL (6.4-8.2)
[2019-01-28] MEDS: INSULIN -REGULAR HUMAN 50 UNIT/0.5 ML ML SQ SCH ×4 (07:30→21:00)
[2019-01-28] MEDS ORDERED: MAGNESIUM SULFATE 1 gm IVPB 1 GM/100 ML BAG IV ONE (08:00)
[2019-01-28] MEDS ORDERED: POTASSIUM CL SA 10 MEQ TAB PO ONE (09:00)
--- NOTE | 2019-01-28 10:30 | EKG ---
Test Date: 2019-01-27 Test Time: 15:33:07 [place] [employer]: NIGEL MEASUREMENT RESULTS: Intervals: Rate: 66 RI: QRSD: 106 QT: 440 QTc: 461 [place]: P: RI: QRS: 25 T: 78 INTERPRETIVE STATEMENTS: Atrial fibrillation Abnormal ECG Compared to ECG 02/25/2018 15:12:27 Sinus rhythm no longer present First degree AV block no longer present Electronically Signed On 01-28-19 10:28:24 CDT by Tobi Chiu
[2019-01-28] MEDS: CEFTRIAXONE/SWI 1gm 1 GM/10 ML SYR IV SCH (11:08)
--- NOTE | 2019-01-28 11:36 | P.PN ---
Subjective Date of Service: 01/28/19 Primary Care Provider: Dr Goodman Chief Complaint: Generalized Weakness Patient seen and examined at bedside. No family at bedside. Chart reviewed and case discussed with nursing staff. No acute events noted overnight. Sodium improving appropriately. New complaints or concerns this morning. Review of Systems 10-point ROS is otherwise unremarkable Physical Examination - Vital Signs Temperature: 97.5 F Blood Pressure: 137/82 Pulse: 68 Respirations: 19 Pulse Ox (%): 93 - Physical Exam General: Alert, In no apparent distress, Oriented x3 HEENT: Atraumatic, PERRLA, EOMI Neck: Supple, JVD not distended Respiratory: Clear to auscultation bilaterally, Normal air movement Cardiovascular: Regular rate/rhythm, Normal S1 S2 Gastrointestinal: Normal bowel sounds, No tenderness Musculoskeletal: No tenderness Integumentary: No rashes Neurological: Normal speech, Normal tone, Normal affect - Studies Laboratory Data (last 24 hrs) 01/27/19 15:15: Sodium 126 L, Potassium 3.4 L, BUN 17, Creatinine 1.01, Glucose 115 H, Total Bilirubin 0.4, AST 11 L, ALT 14, Alkaline Phosphatase 102, Troponin I 0.03 01/27/19 15:15: WBC 7.3, Hgb 13.9, Hct 39.8, Plt Count 318 Assessment And Plan - Current Problems (Diagnosis) (1) Fall Current Visit: Yes Status: Acute Plan: S/P Fall at the house -Trauma scan negative for acute abnormality -PT.OT consulted, pending Qualifiers: Encounter type: initial encounter Qualified Code(s): W19.XXXA - Unspecified fall, initial encounter (2) Hyponatremia Current Visit: Yes Status: Acute Plan: Symptomatic Hyponatremia with NA level of 126 in the ER. Most Likely dehydration vs Medication SE - sodium improving appropriately. -Pt with Chronic H.o hyponatremia with Generalized weakness however now worse then before -NS @100ml/hr at this time. Caution to not over correct to rapidly. -Will monitor NA level closely and Neurological changes as well. (3) HTN (hypertension) Current Visit: Yes Status: Chronic Plan: BP stable at this time -Will continue home medication expect ones causing Hyponatremia Qualifiers: Hypertension type: essential hypertension Qualified Code(s): I10 - Essential (primary) hypertension (4) Diabetes Current Visit: Yes Status: Chronic Plan: BS stable for now -ISS and Accu checks Qualifiers: Diabetes mellitus type: type 2 Diabetes mellitus alf insulin use: without alf use Diabetes mellitus complication status: without complication Qualified Code(s): E11.9 - Type 2 diabetes mellitus without complications - Plan Pending symptomatic improvement. Continue IV antibiotics for a UTI, cultures pending. Possible discharge home in the next 24-48 hours
[2019-01-28] MEDS ORDERED: RIVAROXABAN 15 MG TABLET PO SCH ×2 (17:00→21:00)
[2019-01-28] MEDS: DOCUSATE NA 100 MG CAP PO SCH (20:01)
[2019-01-28] MEDS ORDERED: RIVAROXABAN 15 MG TABLET PO ONE (22:13)
[2019-01-29 05:05] LABS: Absolute Lymphocytes (CBC) 1.3 K/uL (0.7-4.9); Absolute Monocytes 0.4 K/uL (0.1-1.3); Absolute Neutrophil 3.3 K/uL (1.8-8.0); Basophils % 0.6 % (0-1.3); Eosinophils % 1.6 % (0-4.4); Hematocrit 37.8 % (36.0-45.0); Lymphocytes % 25.7 % (15.3-44.8); MPV 7.6 fL (7.6-11.3); Monocytes % 8.7 % (3.3-12.3); RBC Red Blood Cell Count 4.25 M/uL (3.86-4.86)
[2019-01-29 05:12] LABS: Albumin 3.5 g/dL (3.4-5.0); Bilirubin Total 0.3 mg/dL (0.2-1.0); Magnesium 1.7 mg/dL (1.8-2.4); Potassium 3.3 mmol/L (3.5-5.1); Protein, Total 6.4 g/dL (6.4-8.2)
[2019-01-29] MEDS: INSULIN -REGULAR HUMAN 50 UNIT/0.5 ML ML SQ SCH ×2 (07:30→11:30)
[2019-01-29] MEDS ORDERED: MAGNESIUM SULFATE 1 gm IVPB 1 GM/100 ML BAG IV ONE (08:00)
[2019-01-29] MEDS: NA CHLORIDE 0.9% 1,000 ML IV SCH (08:18)
[2019-01-29] MEDS: DOCUSATE NA 100 MG CAP PO SCH (08:20)
[2019-01-29] MEDS: CEFTRIAXONE/SWI 1gm 1 GM/10 ML SYR IV SCH (08:21)
[2019-01-29] MEDS ORDERED: POTASSIUM CL SA 10 MEQ TAB PO ONE (09:00)
[2019-01-29] MEDS ORDERED: METOPROLOL XL 50 MG TAB PO SCH (10:31)
[2019-01-29] MEDS ORDERED: LISINOPRIL 20 MG TAB PO SCH (10:32)
[2019-01-29] MEDS ORDERED: AMLODIPINE 10 MG TAB PO SCH (10:32)
--- NOTE | 2019-01-29 13:16 | P.DS ---
Admission Date: 01/27/19 Discharge Date: 01/29/19 Primary Care Provider: Dr Goodman Disposition: ROUTINE DISCHARGE Discharge Condition: GOOD Reason for Admission: Generalized Weakness - Problems (1) Fall Current Visit: Yes Status: Acute Qualifiers: Encounter type: initial encounter Qualified Code(s): W19.XXXA - Unspecified fall, initial encounter (2) Hyponatremia Current Visit: Yes Status: Resolved (3) HTN (hypertension) Current Visit: No Status: Chronic Qualifiers: Hypertension type: essential hypertension Qualified Code(s): I10 - Essential (primary) hypertension (4) Diabetes Current Visit: No Status: Chronic Qualifiers: Diabetes mellitus type: type 2 Diabetes mellitus termite technician insulin use: 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 Pt also had a fall this morning due to weakness in her front loan. Did not hit her head. Pt states she had similar symptoms in the past and was seen in the ER and was found to have hyponatremia and UTI and was DC home. She did well overall until now. She denies having any other associated symptoms such as seizures, dizziness, muscle cramps, N/V or abd pain, SOB or CP. Also denies having fever or chills at this time. In the ER pt was seen and evaluated. lab work and Imaging was done consistent with Hyponatremia and Hypokalemia. Pt was thus referred for admission for further care. Hospital Course: Patient was admitted for hyponatremia, fall. She was started on IV fluids. Her sodium improved appropriately and returned to the normal range. No abnormal neurological exam throughout the stay. She did have a fall in the house, trauma scan was negative for any acute abnormalities. Physical therapy and occupational therapy was consulted. Per physical therapy recommendations, patient would benefit from outpatient rehab. Social work consult placed for outpatient rehab set up. Patient was found to have a urinary tract infection, she was started on IV antibiotics. Cultures were positive for E. coli, sensitive to Bactrim. She was discharged home on oral Bactrim with instructions to follow up with the outpatient primary care physician. Social work will be reaching outpatient to help set up outpatient physical therapy. Prior to discharge, patient was alert oriented x3, in no acute distress, hemodynamically stable. She stated that she was asymptomatic had no complaints. Her diagnoses/treatment plan were discussed with patient, all questions were answered and patient verbalized understanding. She was discharged home in a safe stable manner. Vital Signs/Physical Exam: Temp Pulse Resp BP Pulse Ox 97.3 F 72 14 157/83 H 95 01/29/19 12:00 01/29/19 12:00 01/29/19 12:00 01/29/19 12:00 01/29/19 12:00 General: Alert, In no apparent distress, Oriented x3 HEENT: Atraumatic, PERRLA, EOMI Neck: Supple, JVD not distended Respiratory: Clear to auscultation bilaterally, Normal air movement Cardiovascular: Regular rate/rhythm, Normal S1 S2 Gastrointestinal: Normal bowel sounds, No tenderness Musculoskeletal: No tenderness Integumentary: No rashes Neurological: Normal speech, Normal tone, Normal affect Lymphatics: No axilla or inguinal lymphadenopathy Laboratory Data at Discharge: WBC 5.2 K/uL (4.3-10.9) D 01/29/19 04:35 Hgb 13.3 g/dL (12.0-15.0) 01/29/19 04:35 Hct 37.8 % (36.0-45.0) 01/29/19 04:35 Plt Count 277 K/uL (152-406) 01/29/19 04:35 Sodium 140 mmol/L (136-145) 01/29/19 04:35 Potassium 3.3 mmol/L (3.5-5.1) L 01/29/19 04:35 BUN 13 mg/dL (7-18) 01/29/19 04:35 Creatinine 0.79 mg/dL (0.55-1.3) 01/29/19 04:35 Glucose 154 mg/dL (74-106) H 01/29/19 04:35 Phosphorus 3.3 mg/dL (2.5-4.9) 01/28/19 05:10 Magnesium 1.7 mg/dL (1.8-2.4) L 01/29/19 04:35 Total Bilirubin 0.3 mg/dL (0.2-1.0) 01/29/19 04:35 AST 10 U/L (15-37) L 01/29/19 04:35 ALT 12 U/L (12-78) 01/29/19 04:35 Alkaline Phosphatase 98 U/L (45-117) 01/29/19 04:35 Troponin I 0.03 ng/mL (0.0-0.045) 01/27/19 15:15 Home Medications: Amlodipine Besylate 1 tab PO DAILY 01/27/19 Bupropion HCl [Bupropion Xl] 1 tab PO DAILY 01/27/19 Fluvoxamine Maleate 1 tab PO TID 01/27/19 Insulin Glargine Human [Lantus*] 5 units SQ BEDTIME 01/27/19 Lisinopril 1 tab PO DAILY 01/27/19 Metformin HCl 1 tab PO BID 01/27/19 Metoprolol Succinate 50 mg PO DAILY 01/27/19 OXcarbazepine [Oxcarbazepine] 1 tab PO TID 01/27/19 Rivaroxaban [Xarelto*] 1 tab PO BEDTIME 01/27/19 Rosuvastatin Calcium 20 mg PO BEDTIME 01/27/19 hydroCHLOROthiazide [Hydrochlorothiazide*] 2 cap PO DAILY 01/27/19 Sulfamethoxazole/Trimethoprim [Bactrim Ds Tablet] 1 each PO BID #10 tablet 01/29 New Medications: Sulfamethoxazole/Trimethoprim [Bactrim Ds Tablet] 1 each PO BID #10 tablet Patient Discharge Instructions: Please follow up with the primary care physician in 2-3 days. New medications: Bactrim for your urinary tract infection. Physical therapy recommended that you will benefit from outpatient rehab. Social work has been consulted and they will be getting in touch with you. Please return to the emergency room for worsening symptoms. Diet: AHA Activity: Ad elvin Followup: Isaias Goodman DO [Primary Care Provider] - Time spent managing pt's care (in minutes): 55
== END 2019-01-29 15:35 | disposition home or self-care (01) | DRG 641 ==
LOC: ER 14:26 → ERHOLD 16:43 → 2ND 18:31
PROVIDERS: ADMIT Family Medicine; ATTEND Family Medicine
DX: E87.1 Hypo-osmolality and hyponatremia (principal); N30.00 Acute cystitis without hematuria; R64 Cachexia; B96.20 Unspecified Escherichia coli [E. coli] as the cause of diseases classified elsewhere; R53.1 Weakness; I10 Essential (primary) hypertension; E11.9 Type 2 diabetes mellitus without complications; Z91.81 History of falling; E87.6 Hypokalemia; Z68.30 Body mass index [BMI] 30.0-30.9, adult; Z79.4 Long term (current) use of insulin; Z86.73 Personal history of transient ischemic attack (TIA), and cerebral infarction without residual deficits
CPT/HCPCS: 36415; 70450; 71045; 72125; 80053; 81003; 81015; 82962; 83735; 84100; 84132; 84439; 84443; 84484; 85025; 87077; 87086; 87088; 87186; 93005; 94760; 96361; 96365; 97112; 97116; 97163; 97166; 99285; J0696; J3475; J7030

== ENCOUNTER → 2020-09-09 | Day surgery (SDC) | payer OTHER, MEDICARE ==
--- OUTSIDE RECORDS SUMMARY | 2020-09-09 08:58 | XMS REPORT | Continuity of Care Document ---
:1950 Author Organization [facility] Address [address] [place] [address] [address]. [address] [place] [address] Care Team Providers Name Role Phone JANET Attending Clinician Unavailable ANNALISE Attending Clinician Unavailable ANNALISE Attending Clinician Unavailable Problems Condition Condition Condition Status Onset Resolution Last Treating Co mments Source Name Details Category Date Date Treatment Clinician Date Stroke Stroke Problem Active Univers syndrome syndrome [facility] of [place] Physici ans History of History of Problem Resolve Univers diabetes diabetes d ity of mellitus mellitus [place] [facility] ans History of History of Problem Resolve Univers Atrial Atrial d ity of fibrill[place]ill[place], Physici controlled controlled an s History of History of Problem Resolve Univers hypertensi hypertensi d it y of on on [place] Physici ans Anxiety Anxiety Problem Active [facility] [place] [facility] Diabetes Diabetes Problem Active Unive rs mellitus, mellitus, ity of type II type II [place] Physici ans Syncope, Syncope, Problem Active Unive rs near near ity of [place] [facility]ici ans Chronic Chronic Problem Active Univers atrial atrial ity of fibrill[place] Physici ans Chronic Chronic Problem Active Univers arterial arterial ity of ischemic ischemic [place] stroke stroke Physici ans Benign Benign Problem Active Univers essential essential ity of hypertens[place]ici ans Hyperlipid Hyperlipid Problem Active U nivers emia emia ity of [place] [facility]ici ans Allergies, Adverse Reactions, Alerts This patient has no known allergies or adverse reactions. Family History Family Member Diagnosis Comments Start Date Stop Date Source Mother Family history of Univers ity of [place] Unknown and Physicians unspecified causes of morbidity Father Family history of [facility]y of [place] Unknown and Physicians unspecified causes of morbidity Social History Smoking Status Start Date Stop Date Source [facility] smoked tobacco (finding) [facility] [place] [facility] Medications Ordered Filled Start Stop Current Ordering Indication Dosage Frequency Signature Comments Components Source Medication Medication Date Date Medication? Clinician (SIG) Name Name Xarelto 15 Xarelyaniv 15 Yes ANJAIL 1 TAKE 1 Univers MG Oral MG Oral 4-02 SHARRIEF TABLET ity of Tablet Tablet 00:00: M.D. BEDTIME [place] 00 Physici ans hydroCHLORO hydroCHLORO 2016- Yes MUNACHI 1 QD TAKE 1 Univers thiazide 25 thiazide 25 1-28 OKPALA TABLET BY ity of MG Oral MG Oral 00:00: SENIOR HRIS ANALYST MOUTH [place] Tablet Tablet 00 EVERY DAY Physic i ans Lisinopril Lisinopril Yes MUNACHI 1 QD TAKE 1 Univers 40 MG Oral 40 MG Oral 2-23 OKPALA TABLET ity of Tablet Tablet 00:00: SENIOR HRIS ANALYST DAILY [place] 00 Physici ans amLODIPine amLODIPine Yes MUNACHI TAKE 1 Univers Besylate 10 Besylate 10 2-23 OKPALA TABLET BY ity of MG Oral MG Oral 00:00: SENIOR HRIS ANALYST MOUTH [place] Tablet Tablet 00 DAILY Physici ans Rosuvastati Rosuvastati Yes MUNACHI 1 QD TAKE 1 Univers n Calcium n Calcium 2-23 OKPALA TABLET i ty of 20 MG Oral 20 MG Oral 00:00: SENIOR HRIS ANALYST DAILY. [place] Tablet Tablet 00 Physici ans metFORMIN metFORMIN Yes MUNA[place]I Q12H TAKE 1 Univers HCl - 1000 HCl - 1000 2-23 OKPALA TABLET ity of MG Oral MG Oral 00:00: SENIOR HRIS ANALYST EVERY 12 Emeka as Tablet Tablet 00 HOURS Physici DAILY. ans OXcarbazepi OXcarbazepi Yes MUNACHI Q0.3333D TAKE 1 Univers ne 300 MG ne 300 MG 2-23 OKPALA TABLET 3 ity of Oral Tablet Oral Tablet 00:00: SENIOR HRIS ANALYST TIMES [place] 00 DAILY. Physici ans Lantus 100 Lantus 100 Yes USE Univers UNIT/ML UNIT/ML 2-23 DIRECTED. ity of Subcutaneou Subcutaneou 00:00: [place] s Solution s Solution 00 Phy sici ans Metoprolol Metoprolol Yes ANJAIL .5 QD TAKE 0.5 Univers Succinate Succinate 2-23 SHARRIEF TABLET ity of ER 50 MG ER 50 MG 00:00: M.D. DAILY [place] Oral Tablet Oral Tablet 00 P hysici Extended Extended ans Release 24 Release 24 Hour Hour fluvoxaMINE fluvoxaMINE 2017-0 Yes ANJAIL TAKE 2 Univers Maleate 100 Maleate 100 2-23 SHARRIEF TABLETS AT ity of MG Oral MG Oral 00:00: M.D. BEDTIME. Emeka as Tablet Tablet 00 Physici ans Vital Signs Vital Name Observation Time Observation Value Comments Source Systolic blood 2020-08-23 127 mm[Hg] [facility] 11:10:00 [place] Physician s Diastolic blood 2020-08-23 72 mm[Hg] University o f pressure 11:10:00 [place] Physician s BP Systolic 2019-08-28 105 mm[Hg] Location: [facility]; [facility] 11:03:00 Position: [place] Physician s Sitting BP Diastolic 2019-08-28 71 mm[Hg] Location: [facility] 11:03:00 Position: [place] Physician s Sitting Height 2019-08-28 63 [in_us] [facility] 11:03:00 [place] [facility]ician s Weight 2019-08-28 177 [lb_av] [facility] 11:03:00 [place] [facility] s Body Mass Index 2019-08-28 31.35 kg/m2 University o f Calculated 11:03:00 [place] [facility] s Heart Rate 2019-08-28 81 /min Location: L [facility] 11:03:00 Brachial [place] [facility]ician s Artery; O2 SAT 2019-08-28 91 % Source: [facility] 11:03:00 [place] Phys[facility] s BP Systolic 2019-01-03 145 mm[Hg] Location: [facility] 14:32:00 Position: [place] Physician s Sitting BP Diastolic 2019-01-03 70 mm[Hg] Location: [facility] 14:32:00 Position: [place] Physician s Sitting Height 2019-01-03 63 [in_us] [facility] 14:32:00 [place] Physician s Weight 2019-01-03 186.125 [lb_av] University o f 14:32:00 [place] Physician s Body Mass Index 2019-01-03 32.97 kg/m2 University o f Calculated 14:32:00 [place] Phys[facility] s Heart Rate 2019-01-03 68 /min Location: R [facility] 14:32:00 Brachial [place] Physician s Artery; BP Systolic 2018-04-08 146 mm[Hg] Location: [facility] 11:49:00 Position: [place] Physician s Supine BP Diastolic 2018-04-08 84 mm[Hg] Location: [facility] 11:49:00 Position: [place] Physician s Supine BP Systolic 2018-04-08 129 mm[Hg] Location: [facility]; [facility] 11:32:00 Position: [place] Physician s Standing BP Diastolic 2018-04-08 67 mm[Hg] Location: [facility]; [facility] :32:00 Position: [place] Physician s Standing BP Systolic 2018-04-08 138 mm[Hg] Location: [facility]; [facility] 11:19:00 Position: [place] Physician s Sitting BP Diastolic 2018-04-08 73 mm[Hg] Location: [facility]; [facility] 11:19:00 Position: [place] Physician s Sitting Heart Rate 2018-04-08 67 /min Location: R [facility] 11:19:00 Brachial [place] Physician s Artery; BP Systolic 2018-04-08 134 mm[Hg] Location: [facility]; [facility] :58:00 Position: [place] Physician s Sitting BP Diastolic 2018-04-08 78 mm[Hg] Location: [facility]; [facility] :58:00 Position: [place] Physician s Sitting Heart Rate 2018-04-08 71 /min Location: R [facility] 09:58:00 Brachial [place] Physician s Artery; Height 2018-04-08 63 [in_us] University 09:58:00 [place] [facility]ician s Weight 2018-04-08 174.4375 [lb_av] University of 09:58:00 [place] Physician s Body Mass Index 2018-04-08 30.9 kg/m2 University o f Calculated 09:58:00 [place] Physician s BP Systolic 2017-10-08 142 mm[Hg] Location: [facility]; [facility] 10:28:00 Position: [place] Physician s Sitting BP Diastolic 2017-10-08 67 mm[Hg] Location: [facility] :28:00 Position: [place] Physician s Sitting Height 2017-10-08 63 [in_us] [facility] 10:28:00 [place] Physician s Weight 2017-10-08 177 [lb_av] University of 10:28:00 [place] Physician s Body Mass Index 2017-10-08 31.35 kg/m2 University o f Calculated 10:28:00 [place] [facility] s Heart Rate 2017-10-08 53 /min Location: L [facility] 10:28:00 Brachial [place] Physician s Artery; Procedures Procedure Date / Time Performing Clinician Source Performed [N] 30 Day Event Monitor 2018-04-08 00:00:00 [facility] Recording Physicians US Echocardiogram 2D w/m 2018-04-08 00:00:00 Uni [facility] mode [id number] Physicians [QLH] BASIC METABOLIC 2017-08-31 00:00:00 [facility] PANEL W/EGFR Physicians History of University o f [place] Section Physicians History of Hernia Repair Univers ity [facility] Physicians History of Knee Surgery Universi ty [facility] Right Physicians History of Hip Surgery [facility] [place] Right Physicians Plan of Care Planned Activity Planned Date Details Comments Source Diagnostic Test 2018-04-08 [N] 30 Day Event Universi ty [facility] Pending 00:00:00 Monitor Recording Physicians [code = [N] 30 Day Event Monitor Recording] Diagnostic Test 2018-04-08 [N] 30 Day Event Universi [facility] [place] Pending 00:00:00 Monitor Recording Physicians [code = [N] 30 Day Event Monitor Recording] Encounters Start End Encounter Admission Attending Care Care Encounter Source Date/Time Date/Time Type Type Clinicians Facility Department ID 2020-08-23 2020-08-23 DESTINEY Veronica Neurology - [id number] Univers 11:00: 11:00:00 t; Bryce IVY M.D. [facility] [place] ans 2019-08-28 2019-08-28 DESTINEY Ochoa Neurology - [id number] Univers 11:30: 11:30:00 t; HENNA WOODY [place] [facility] ans 2019-08-08 2019-08-08 DESTINEY Veronica [facility] [id number] Univers 15:00:00 15:00:00 t; Jessica IVY M.D. [place] Sen IVY M.D. ans 2019-01-03 2019-01-03 DESTINEY Veronica Neurology [id number] Univers 15:00:00 15:00:00 t; Jessica IVY M.D. [place] Sen IVY M.D. ans 2018-07-05 2018-07-05 DESTINEY Veronica Neurology [id number] Univers 14:00:00 14:00:00 t; Jessica IVY M.D. [place] Sen IVY M.D. ans 2018-06-21 2018-06-21 Appointmartin GONZALES, [facility] [id number] Univers 15:30:00 15:30:00 t; Jessica IVY M.D. [place] Sen IVY M.D. ans 2018-04-08 2018-04-08 Appointmartin GONZALES, [facility] Neurology [id number] Univers 10:30:00 10:30:00 t; Jessica IVY M.D. [place] Sen IVY M.D. ans 2017-10-15 2017-10-15 Appointmen JANET, [facility] [id number] Univers 09:00:00 09:00:00 t; Jessica IVY M.D. [place] Sen IVY M.D. ans 2017-10-08 2017-10-08 Appointmartin GONZALES, [facility] Neurology [id number] Univers 10:30:00 10:30:00 t; Jessica IVY M.D. [place] Sen IVY M.D. ans 2017-08-31 2017-08-31 Appointmartin GONZALES, [facility] Neurology [id number] Univers 08:00:00 08:00:00 t; Jessica IVY M.D. [place] Sen IVY M.D. ans 2017-07-14 2017-07-14 Appointmartin GONZALES, [facility] [id number] Univers 11:00:00 11:00:00 t; Jessica IVY M.D. [place] Sen IVY M.D. ans 2017-02-01 2017-02-01 Appointmen JANET, [facility] [id number] Univers 10:00:00 10:00:00 t; Jessica IVY M.D. [place] Sen IVY M.D. ans 2017-01-05 2017-01-05 Appointmen ANNALISE, [facility] [id number] Univers 11:00:00 11:00:00 t; HENNA WOODY NP ity of [place] [employer] Physici ans 2016-12-22 2016-12-22 Appointmen DESTINEY WODOY UTP [id number] Univers 09:00:00 09:00:00 t; HENNA WOODY NP ity of [place], [place] WESTON Chatterjee ans 2016-11-26 2016-11-26 Appointmen DESTINEY GONZALES UTP [id number] Univers 10:00:00 10:00:00 t; Jessica IVY M.D. [place] ANJAIL, Physici M.D. ans Results This patient has no known results.
--- OUTSIDE RECORDS SUMMARY | 2020-09-09 08:58 | XMS REPORT | Summary of Care ---
:1950 Author Name BIJU GONZALES M.D. Address Unavailable Unavailable , Care Team Providers Name Role Phone HENNA WOODY APRN Unavailable Unavailable BIJU GONZALES M.D. Unavailable Unavailable JANET RIVERA ME, BIJU Unavailable Unavailable Unavailable Unavailable Unavailable Functional Status Name Dates Details Functional status health issues are not documented Status: Name Dates Details Cognitive status health issues are not documented Status: Problems Name Dates Details Anxiety (300.00, F41.9) Status: Active Stroke syndrome Status: Active Syncope, near (780.2, R55) Status: Activ e History of diabetes mellitus (V12.29, Z86.39) Status: Resolved Chronic arterial ischemic stroke (V12.54, I69.30) Status: Active Chronic atrial fibrillation (427.31, I48.20) Status: Active Benign essential hypertension (401.1, I10) Status: Active Diabetes mellitus, type II (250.00, E11.9) Status: Active Hyperlipidemia (272.4, E78.5) Status: Ac tive Medications Name Dates Details Lisinopril 40 MG Oral Tablet TAKE 1 TABLET DAILY Quantity: 90 Refills: 0 HENNA WOODY APRN Start : 26-Nov-2016 Active amLODIPine Besylate 10 MG Oral Tablet TAKE 1 TABLET BY MOUTH DAILY Quantity: 30 Refills: 0 HENNA WOODY APRN Start : 26-Nov-2016 Active Rosuvastatin Calcium 20 MG Oral Tablet TAKE 1 TABLET DAILY. Quantity: 30 Refills: 0 HENNA WOODY APRN Start : 26-Nov-2016 Active metFORMIN HCl - 1000 MG Oral Tablet TAKE 1 TABLET EVERY 12 HOURS DAILY. Quantity: 60 Refills: 0 HENNA WOODY APRN Start : 26-Nov-2016 Active OXcarbazepine 300 MG Oral Tablet TAKE 1 TABLET 3 TIMES DAILY. Quantity: 90 Refills: 0 HENNA WOODY APRN Start : 26-Nov-2016 Active Lantus 100 UNIT/ML Subcutaneous Solution USE DIRECTED. Refills: 0 Start : 26-Nov-2016 Active Metoprolol Succinate ER 50 MG Oral Tablet Extended Release 24 Hour TAKE 0.5 TABLET DAILY Quantity: 45 Refills: 1 BIJU GONZALES M.D. Start : 26-Nov-2016 Active fluvoxaMINE Maleate 100 MG Oral Tablet TAKE 2 TABLETS AT BEDTIME. Refills: 0 JANET Leavitt, WANDAPINKY Start : 26-Nov-2016 Active hydroCHLOROthiazide 25 MG Oral Tablet TAKE 1 TABLET BY MOUTH EVERY DAY Quantity: 90 Refills: 3 HENNA WOODY APRN Start : 31-Aug-2017 Active Xarelto 15 MG Oral Tablet TAKE 1 TABLET BEDTIME Quantity: 30 Refills: 4 BIJU GONZALES M.D. Start : 03-Jan-2019 Active Allergies and Adverse Reactions Name Dates Details No Known Drug Allergies (Allergy) Status : Active Past Medical History Name Dates Details History of Atrial fibrillation, controlled (427.31, I48.91) Status: Resolved History of diabetes mellitus (V12.29, Z86.39) Status: Resolved History of hypertension (V12.59, Z86.79) Status: Resolved Procedures Procedure Dates Details History of Section Completed History of Hernia Repair Completed History of Knee Surgery Right Completed History of Hip Surgery Right Completed Immunization Name Dates Details Immunizations not documented Family History Name Dates Details Family history of Unknown and unspecified causes of morbidit y (799.9, R69) Status: Active Name Dates Details Family history of Unknown and unspecified causes of morbidit y (799.9, R69) Status: Active Social History Name Dates Details - Status: Name Dates Details Never smoked tobacco (finding) Vital Signs Date Test Result Details [id number] Systolic blood pressure 127 mm[Hg] Status: Diastolic blood pressure 72 mm[Hg] Status: Results Date Description Value Details Results not documented Plan of Care Name Dates Details Planned Observations Planned Goals not documented Interventions Provided Plan-- Continue antithrombotic Xarelto 15mg - may need higher dose for stroke prevention -- Reinforced management of risk factors and lifestyle changes -- Your blood pressure goal is less than 130/80 -- Continue current anti- hypertensive medications -- LDL goal is less than 70 -- Continue statin for lipid management -- Diabetes - HgbA1c goal is less than 7 -- Continue current diabetic medication -- Continue anticoagulant medication -- Return to clinic in 6 months Aug, 2019Discussion/SummaryMs. Kevin Galan is a 70 with HTN, DMII who suffered a L MCA, and later found to have a fib and nowon xarelto for stroke prevention. She is clinically stable and will continue all meds as ordered. She has had some wieght gain. We discussed the importance of diet and exercise. Instructions Name Dates Details Instructions not documented Encounters Appointment; BIJU GONZALES M.D. On: 03-Jan-2019 15: 00 Encounter Diagnosis: Problem not documented Appointment; BIJU GONZALES M.D. On: 08-Aug-2019 15: 00 Encounter Diagnosis: Problem not documented Appointment; HENNA WOODY APRN On: 28-Aug-2019 11: 30 Encounter Diagnosis: Problem not documented Appointment; BIJU GONZALES M.D. On: 23-Aug-2020 11 :00 Encounter Diagnosis: Problem not documented
--- NOTE | 2020-09-09 10:27 | RAD REPORT ---
EXAM DESCRIPTION: Ultrasound-guided vacuum assisted right breast core biopsy CLINICAL HISTORY: Breast mass N63.10 COMPARISON: Follow Up Breast Axilla Comp dated 08/19/2020; 3D DIAG UNI F/U dated 08/19/2020; 3D SCR JUAN BILAT W/CAD dated 07/24/2020 FINDINGS: Informed consent was obtained and time-out was performed. The patient's right breast was prepped and draped in the usual sterile fashion. 1% lidocaine was used for local anesthetic purposes. Utilizing aseptic technique and ultrasound guidance, a 12 gauge vacuum assisted core biopsy device wa s used to obtain 3 core specimens through the mass of interest. A post biopsy clip was then placed. All collected material was sent for cytology. Patient tolerated procedure well. IMPRESSION: Successful ultrasound guided vacuum assisted right breast mass biopsy.
== END ==
LOC: DS 08:28
PROVIDERS: ATTEND Surgery
PROC: 0H9T3ZX Drainage of Right Breast, Percutaneous Approach, Diagnostic (ICD-10-PCS; principal; 2020-09-09)
DX: C50.411 Malignant neoplasm of upper-outer quadrant of right female breast (principal)
CPT/HCPCS: 19083; 88305